=== PATIENT | male | born 1990 | race African-American/Black ===

== ENCOUNTER 2022-07-19 16:17 | Emergency (ER) | payer OTHER ==
[~2022-07-19] VITALS: Ht 177.8 cm; Wt 77.9 kg
[2022-07-19 16:19] VITALS: BP 124/88
[2022-07-19] MEDS ORDERED: METOCLOPRAMIDE 10MG TAB PO ONE (18:05)
[2022-07-19] MEDS ORDERED: ACETAMINOPHEN 500 MG TAB PO ONE (18:05)
[2022-07-19] MEDS ORDERED: KETOROLAC 60MG 2ML VIAL IM ONE (19:05)
== END 2022-07-19 19:23 | disposition home or self-care (01) ==
LOC: M ED 16:17
DX: S06.0X9A Concussion with loss of consciousness of unspecified duration, initial encounter (principal); V49.50XA Passenger injured in collision with unspecified motor vehicles in traffic accident, initial encounter; Y92.410 Unspecified street and highway as the place of occurrence of the external cause
CPT/HCPCS: 70450; 72125; 96372; 99283; J1885

== ENCOUNTER 2023-08-13 07:45 | Emergency (ER) | payer OTHER ==
[~2023-08-13] VITALS: Ht 175.3 cm; Wt 84.7 kg
[2023-08-13] MEDS ORDERED: VENTAER INH (07:56)
[2023-08-13] MEDS: NS 1,000 ML IV ONE (08:31)
[2023-08-13] MEDS: KETOROLAC 30 MG/ML 1ML VIAL IV ONE (08:34)
[2023-08-13] MEDS: ONDANSETRON 4MG 2ML VIAL IV ONE (08:34)
[2023-08-13 08:39] LABS: BASO % 0.5 % (0.0-1.0); EOS # 0.1 10^3/uL (0.0-0.5); EOS % 3.2 % (0.0-3.0); HEMATOCRIT 43.3 % (42.0-52.0); HEMOGLOBIN 14.7 g/dl (13.5-17.5); LYMPH # 1.3 10^3/uL (1.5-5.0); LYMPH % 32.2 % (24.0-44.0); MEAN CORPUSCULAR HEMOGLOBIN 29.5 pg (27.0-33.0); MEAN CORPUSCULAR HGB CONC 33.9 g/dl (32.0-36.5); MEAN CORPUSCULAR VOLUME 86.9 fl (80.0-96.0); MONO # 0.6 10^3/uL (0.0-0.8); MONO % 15.7 % (2.0-8.0); NEUTROPHILS % 48.2 % (36.0-66.0); PLATELET COUNT, AUTOMATED 186 10^3/uL (150-450); RED BLOOD COUNT 4.98 10^6/uL (4.30-6.10); WHITE BLOOD COUNT 4.1 10^3/uL (4.0-10.0)
[2023-08-13 09:12] LABS: LIPASE 38 U/L (12-53)
[2023-08-13 09:14] LABS: CPK CREATINE PHOSPHOKINASE 238 U/L (46-171)
[2023-08-13 09:15] LABS: ALBUMIN 3.9 G/DL (3.2-5.2); ALKALINE PHOSPHATASE 69 U/L (46-116); ALT/SGPT 25 U/L (7.0-40); AST/SGOT 17 U/L (<34); BILIRUBIN,DIRECT 0.2 MG/DL (<0.4); BILIRUBIN,TOTAL 0.5 MG/DL (0.3-1.2); BLOOD UREA NITROGEN 16 MG/DL (9-23); CALCIUM LEVEL 9.1 MG/DL (8.5-10.1); CARBON DIOXIDE LEVEL 29 MMOL/L (20-31); CHLORIDE LEVEL 107 MMOL/L (98-107); CREATININE FOR GFR 0.97 MG/DL (0.70-1.30); GLOMERULAR FILTRATION RATE > 60.0 (>60); GLUCOSE, FASTING 85 MG/DL (60-100); POTASSIUM SERUM 4.2 MMOL/L (3.5-5.1); SODIUM LEVEL 142 MMOL/L (136-145); TOTAL PROTEIN 7.3 G/DL (5.7-8.2)
[2023-08-13] MEDS: PANTOPRAZOLE 40MG VIAL IV ONE (10:19)
[2023-08-13 10:45] VITALS: O2SAT 97
[2023-08-13] MEDS ORDERED: ISOVUE-370 76% 100ML VIAL As Ordered ONE (11:33)
[2023-08-13] MEDS ORDERED: HOME MED LIST COMPLETE! XX SCH (12:40)
[2023-08-13] MEDS ORDERED: PROT1TAB2 PO (13:00)
[2023-08-13] MEDS ORDERED: ONDA4TAB6 PO (13:00)
[2023-08-13] MEDS ORDERED: PERC5TAB12 PO (13:00)
[2023-08-13 13:20] VITALS: BP 126/86; TEMP 96.8
== END 2023-08-13 13:34 | disposition home or self-care (01) ==
LOC: M ED 07:45
DX: K85.90 Acute pancreatitis without necrosis or infection, unspecified (principal); F10.10 Alcohol abuse, uncomplicated; F17.200 Nicotine dependence, unspecified, uncomplicated; Z79.52 Long term (current) use of systemic steroids; Z79.899 Other long term (current) drug therapy
CPT/HCPCS: 74177; 80048; 80076; 82550; 83690; 85025; 93005; 96361; 96374; 96375; 99284; C9113; J1885; J2405; Q9967

== ENCOUNTER → 2024-03-09 | Outpatient (CLI) | payer OTHER ==
[~2024-03-09] MED LIST: ONDA-282 PO; PERC5TAB12 PO; PROT1TAB2 PO; VENTAER INH
== END ==
LOC: M RAD 12:04
PROVIDERS: ATTEND Physician Assistant
DX: R06.00 Dyspnea, unspecified (principal)